=== PATIENT | male | born 2000 | race Caucasian/White ===

== ENCOUNTER 2022-10-18 19:55 | Emergency (ER) | payer OTHER ==
[2022-10-18 20:07] VITALS: TEMP 97.6
--- NOTE | 2022-10-18 20:46 | XR ---
EXAMINATION TYPE: XR hand complete RT DATE OF EXAM: 10/18/2022 8:28 PM INDICATION: Patient age:Male; 21 years old; Reason for study: pain; PHH. COMPARISON: None TECHNIQUE: Frontal, lateral and oblique views of the right hand were obtained. FINDINGS: Normal alignment of the visualized joints. No acute osseous pathology is identified. No e vidence of soft tissue swelling. IMPRESSION: No acute osseous pathology of the right hand.
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
[2022-10-18 22:00] VITALS: BP 132/84; PULSE 94; RESP 18
== END 2022-10-18 22:00 | disposition home or self-care (01) ==
LOC: EC 19:55
DX: S69.91XA Unspecified injury of right wrist, hand and finger(s), initial encounter (principal); S62.001A Unspecified fracture of navicular [scaphoid] bone of right wrist, initial encounter for closed fracture; F17.200 Nicotine dependence, unspecified, uncomplicated; F12.90 Cannabis use, unspecified, uncomplicated; V89.2XXA Person injured in unspecified motor-vehicle accident, traffic, initial encounter
CPT/HCPCS: 29125; 99283